=== PATIENT | male | born 1965 | race Caucasian/White ===

== ENCOUNTER 2023-05-03 09:57 | Outpatient (AMB) | payer OTHER, SELFPAY ==
--- NOTE | 2023-05-03 09:58 | A.OFFVIS_ITS ---
Intake Vital Signs 3 05/03/23 10:13 Height 5 ft 6.93 in Weight 220 lb BMI 34.5 BP 133/79 Blood Pressure Location Lt brachial Position Sitting Pulse 70 Intake Visit Reasons: Hernia Intake Note: Patient is seen in office for evaluation and treatment of a hernia. Patient c/o: feel a lump when trying to do sit ups, denies nausea, vomit, diarrhea, constipation, pain at times, no prior surgeries in the area Logistics Tech Required: No Accompanied by: Self / Same As Patient Allergies No Known Allergies Allergy (Verified 05/03/23 10:09) Medication List - Last Reconciled 05/03/23 by Ramon Dent MD ibuprofen 800 mg PO TID olmesartan 20 mg PO DAILY rosuvastatin 10 mg PO BEDTIME HPI HPI Comments 2 History of Present Illness0 Details 57-year-old male patient presenting for evaluation of an abdominal wall hernia. He reports noting the lump while doing sit-ups. He denies any particular pain unless is 120 lb dog jumps on him at the time. He denies feeling the lump all in the standing position. He denies nausea, vomiting, fever or chills. There has been no previous surgery in this location. [facility] Surgical History History of bilateral inguinal hernia repair History of colonoscopy (08/18/21) Family History Mother Breast cancer Alcohol intake: current Alcohol intake frequency: holidays/special occasions only Patient Tobacco Use Status: Never used Tobacco Review of Systems Const All systems reviewed & are unremarkable except as noted in HPI and below Physical Exam Vital Signs: Last Vital Signs Pulse 70 05/03/23 10:13 BP 133/79 05/03/23 10:13 BMI result Body Mass Index 34.5 Const General: cooperative and no acute distress Nutritional Appearance: well nourished Orientation/consciousness: patient oriented x3 Limitations: no limitations HEENT Head: Yes normocephalic and Yes atraumatic Ears: hearing grossly normal bilaterally Resp Effort & Inspection: normal respiratory effort, no audible wheezes, no cough and no respiratory distress Cardio Jugular venous distension: no JVD GI Other: Soft, nondistended, no palpable hernia noted in the standing position with Valsalva maneuvers. When in the supine position and performing a sit-up maneuver diastasis recti is identified; no hernias noted within this location. Inspection: Yes normal to inspection Abdomen image: 2 1. Diastasis recti upper abdomen Skin Other: Warm, dry, no rash Neuro General: patient oriented x3 Extrem General: Yes no clubbing, cyanosis or edema Assessment & Plan Assessment & Plan (1) Diastasis recti: Code(s): M62.08 - Separation of muscle (nontraumatic), other site Plan 57-year-old male patient presenting with a lump in the upper abdomen noted while doing sit-ups. On examination the patient has diastasis recti noted but no evidence of a ventral or incisional hernia. I discussed the pathophysiology regarding diastasis recti suggested performing core exercises to tight in the oblique muscles as a possible means to lessen the diastasis. No surgical intervention is required as there was no hernia present. Expressed understanding and agrees with the plan. Coding Level of Care Code New Pt Level 4 (30499) Diagnoses Diastasis recti M62.08
[2023-05-03 10:13] VITALS: BP 133/79; PULSE 70; BMI 34.5
== END 2023-05-03 10:17 | disposition home or self-care (01) ==
PROVIDERS: PCP Nurse Practitioner Family; Referring Provider Nurse Practitioner Family; Visit Provider Surgery
DX: M62.08 Separation of muscle (nontraumatic), other site (principal)
CPT/HCPCS: 99204

== ENCOUNTER → 2023-05-03 09:57 | Outpatient (BNVA) | payer OTHER, SELFPAY | PROVIDERS: PCP Nurse Practitioner Family; Referring Provider Nurse Practitioner Family; Visit Provider Surgery ==